=== PATIENT | male | born 1955 | race Caucasian/White ===

== ENCOUNTER 2018-03-15 10:12 | Outpatient (CLI) | payer OTHER ==
[2018-03-15 12:23] VITALS: BP 148/90
--- NOTE | 2018-03-15 16:17 | CARDIAC PROCEDURE NOTE ---
DATE OF SERVICE: 03/15/2018 Physician: MONICA Yost PRIMARY CARE PHYSICIAN: Jeremiah Mendez MD, [facility]. PROCEDURE: Cardiac treadmill stress test. PROCEDURE SYMPTOMS: Chest pain with exertion. CARDIAC RISK FACTORS: Age and hyperlipidemia. PREVIOUS CARDIAC PROCEDURES: None. CLINICAL HISTORY: A 62-year-old male without known coronary artery disease. INITIAL RESTING VITAL SIGNS: BP 144/90, heart rate 69, height 73 inches, weight 215 pounds. PROCEDURE AND FINDINGS: The patient identity and date verified. Consent signed. The patient performed treadmill exercise using a Tad protocol, completing 8 minutes 46 seconds, and completing an estimated workload of 10.16 metabolic equivalents. Maximal blood pressure was 192/80 with a heart rate of 145 beats per minute or 92% of the maximum predicted heart rate for age. The blood pressure response to exercise was within normal limits. The patient stopped because he was tiring. The resting ECG demonstrated normal sinus rhythm with no abnormality. Maximum ST segment depression was less than 0.5 mm and upsloping. There was no ectopy. FINAL IMPRESSION: 1. Good quality test. 2. Negative stress electrocardiogram for ischemia by electrocardiographic criteria. 3. Negative stress test clinically for angina. 4. No ectopy nor arrhythmia noted. 5. Exceeded predicted exercise time of 8 minutes, 15 seconds. TD: 03/15/2018 12:40 MTDD
--- NOTE | 2018-03-19 10:43 | XRAY Report ---
CARDIOVASCULAR TREADMILL TEST: There was no imaging performed for this exam. Procedure notes and results available in the EMR. CHANDU
== END 2018-03-15 10:13 | disposition home or self-care (01) ==
LOC: DI 10:12
PROVIDERS: ATTEND Nurse Practitioner Family
DX: R07.9 Chest pain, unspecified (principal); E78.5 Hyperlipidemia, unspecified
CPT/HCPCS: 93017

== ENCOUNTER 2022-03-25 11:24 | Day surgery (SDC) | payer MEDICARE, OTHER ==
[2022-03-25] MEDS ORDERED: LACTATED RINGERS 1,000 ML IV ONE (11:27)
[2022-03-25] MEDS ORDERED: PROPOFOL 500 MG/50 ML 500 MG/50 ML VIAL ONE (11:28)
--- NOTE | 2022-03-25 11:53 | ANESTHESIA ---
Pre-Anesthesia VS, & Labs - Diagnosis screening exam - Procedure colonoscopy Vital Signs: Temp Pulse Resp BP Pulse Ox 36.0 C L 70 16 148/101 H 98 03/25/22 11:27 03/25/22 11:27 03/25/22 11:27 03/25/22 11:35 03/25/22 11:27 Height: 6 ft 1 in Weight (kg): 102.6 kg Body Mass Index: 29.8 BMI Classification: Overweight - NPO >8 hours Home Medications and Allergies Home Medications: Ambulatory Orders Omeprazole 20 mg DAILY 03/24/22 Aspirin [Adult Low Dose Aspirin EC] 81 mg PO DAILY 06/21/16 Simvastatin 20 mg PO DAILY 06/21/16 Omeprazole 20 mg DAILY 03/24/22 Allergies/Adverse Reactions: Allergies Allergy/AdvReac Type Severity Reaction Status Date / Time No Known Drug Allergies Allergy Verified 03/25/22 11:43 Anes History & Medical History - Anesthetic History Anesthesia Complications: reports: No previous complications - Medical History Cardiovascular: reports: High cholesterol Pulmonary: reports: None Gastrointestinal: reports: GERD (controlled with medication) Urinary: reports: None Neuro: reports: None Musculoskeletal: reports: None Endocrine/Autoimmune: reports: None Blood Disorders: reports: None Skin: reports: None Smoking Status: Former smoker (quit 6 years ago) Psychosocial: reports: Alcohol (2 drinks per week) History of Cancer?: No - Surgical History General: reports: Colonoscopy Orthopedic: reports: Other Exam General: Alert, Oriented x3, Cooperative, No acute distress Dental: WNL Mouth Openin Fingerbreadth Neck Mobility: Normal Mallampati classification: II Thyromental Distance: 4-6 cm Mental/Cognitive Status: Alert/Oriented X3, Normal for patient Plan Anesthesia Type: General, Total IV Consent for Procedure(s) Verified and Reviewed: Yes Code Status: Attempt Resuscitation ASA classification: 2-Mild systemic disease Is this case an emergency?: No
--- NOTE | 2022-03-25 12:31 | HISTORY & PHYSICAL EXAMINATION ---
Chief Complaint - Chief Complaint Chief Complaint: here for colon cancer screening History of Present Illness - History Obtained From Records Reviewed: yes History obtained from: pt Exam Limitations: none - History of Present Illness HPI Comment/Other: here for colon cancer screening. he had a normal colonoscopy about 11 years ago. no colon problems History - Past Medical History Cardiovascular: reports: High cholesterol Respiratory: reports: None Neuro: reports: None Endocrine/Autoimmune: reports: None GI: reports: GERD (controlled with medication) : reports: None HEENT: reports: Chronic vision loss Psych: reports: None Musculoskeletal: reports: None Derm: reports: None MRSA Hx?: No - Past Surgical History General: reports: Colonoscopy Ortho: reports: Other Meds/Allgy - Home Medications Home Medications: Ambulatory Orders Medication Instructions Recorded Confirmed Aspirin [Adult Low Dose Aspirin EC] 81 mg PO DAILY 06/21/16 03/24/22 Simvastatin 20 mg PO DAILY 06/21/16 03/24/22 Omeprazole 20 mg DAILY 03/24/22 03/24/22 - Allergies Allergies/Adverse Reactions: Allergies Allergy/AdvReac Type Severity Reaction Status Date / Time No Known Drug Allergies Allergy Verified 03/25/22 11:43 Review of Systems - Other Findings Other Findings: 10 pt ros as above otherwise unremarkable Exam - Vital Signs Reviewed Vital Signs: Yes Vital Signs: Vital Signs x48h Temp Pulse Resp BP Pulse Ox 03/25/22 11:35 148/101 H 03/25/22 11:27 36.0 C L 70 16 98 - Physical Exam General Appearance: positive: No acute distress, Alert Eyes Bilateral: positive: PERRL, EOMI, No scleral icterus ENT: positive: No signs of dehydration Neck: positive: No JVD, Trachea midline Respiratory: positive: No respiratory distress, Breath sounds nml Cardiovascular: positive: Regular rate & rhythm Abdomen: positive: Non-tender, No distention Neurologic/Psychiatric: positive: Oriented x3 Conclusion/Plan - Problem List (1) Colon cancer screening Conclusion/Plan: plan colonoscopy. parq held and consent obtained
[2022-03-25] MEDS ORDERED: LACTATED RINGERS 600 ML IV ONE (13:10)
[2022-03-25 13:32] VITALS: BP 130/96
--- NOTE | 2022-03-25 13:35 | ANESTHESIA POST OP EVALUATION ---
Anesthesia Post Eval - Post Anesthesia Eval Vitals: Last Vital Signs Temp 36.1 C L 03/25/22 13:31 Pulse 61 03/25/22 13:31 Resp 11 L 03/25/22 13:31 BP 130/96 H 03/25/22 13:31 Pulse Ox 94 03/25/22 13:31 CV Function Including HR & BP: Stable Pain Control: Satisfactory Nausea & Vomiting: Negative Mental Status: Baseline Respiratory Status: Airway Patent Hydration Status: Satisfactory Anesthesia Complications: None
== END 2022-03-25 11:25 | disposition home or self-care (01) ==
LOC: SDS 11:24
PROVIDERS: ATTEND Surgery
DX: Z12.11 Encounter for screening for malignant neoplasm of colon (principal); K57.30 Diverticulosis of large intestine without perforation or abscess without bleeding; Z87.891 Personal history of nicotine dependence; H81.10 Benign paroxysmal vertigo, unspecified ear
CPT/HCPCS: G0121; J7120